=== PATIENT | female | born 1985 | race Hispanic/Latino ===

== ENCOUNTER 2017-05-26 14:53 | Emergency (ER) | payer MEDICAID, OTHER ==
[2017-05-26 15:21] VITALS: BP 120/79; PULSE 78; RESP 16; TEMP 98.5; O2SAT 100
[2017-05-26] MEDS ORDERED: Albuterol-Ipratrop 3 mg / 0.5 (3 ml) UD ONE (15:51)
--- NOTE | 2017-05-26 16:24 | ED PDOC ---
HPI: Abdomen Time Seen by Provider: 05/26/17 15:35 Chief Complaint (Nursing): GI Problem Chief Complaint (Provider): GI Problem History Per: Patient History/Exam Limitations: no limitations Onset/Duration Of Symptoms: Days (x 1) Current Symptoms Are (Timing): Still Present Additional Complaint(s): 31 year old female with a history of hemorrhoids presents to the ED complaining of anal pain since yesterday. States she has had hemorrhoids for over 10 years, but yesterday she experienced more pain than usual. Otherwise: (-) vomiting, (- ) diarrhea, (-) fever, (-) melena, (-) hematochezia, (-) rectal bleeding, (-) abdominal pain. PMD: [facility] Past Medical History Reviewed: Historical Data, Nursing Documentation, Vital Signs Vital Signs: Last Vital Signs Temp 98.5 F 05/26/17 15:20 Pulse 78 05/26/17 15:20 Resp 16 05/26/17 15:20 BP 120/79 05/26/17 15:20 Pulse Ox 100 05/26/17 16:37 - Medical History PMH: Hyperthyroidism Other PMH: hemmorhoids - Surgical History Surgical History: No Surg Hx - Family History Family History: States: Unknown Family Hx - Home Medications Home Medications: Ambulatory Orders Medication Instructions Recorded Metoclopramide Hydrochloride 10 mg PO QID PRN #30 tab 02/20/14 [Reglan] Docusate [Colace] 100 mg PO BID #60 cap 05/26/17 Hard Fat/Phenylephrine [place] 1 sup RC BID #28 sup 05/26/17 [Anusol Suppository] Hydrocortisone 2.5% (Rectal) 30 applic NC BID #1 tube 05/26/17 [Anusol-HC] - Allergies Allergies/Adverse Reactions: Allergies Allergy/AdvReac Type Severity Reaction Status Date / Time No Known Allergies Allergy Verified 05/26/17 15:17 Review of Systems ROS Statement: Except As Marked, All Systems Reviewed And Found Negative Constitutional: Negative for: Fever Gastrointestinal: Positive for: Rectal Pain. Negative for: Vomiting, Abdominal Pain, Diarrhea Physical Exam - Reviewed Nursing Documentation Reviewed: Yes Vital Signs Reviewed: Yes - Physical Exam Comments: GENERAL APPEARANCE: Patient is awake, alert, oriented x 3, in no acute distress SKIN: Warm, dry; (-) cyanosis. EYES: (-) conjunctival pallor, (-) scleral icterus. ENMT: Mucous membranes [ ] moist. NECK: (-) tenderness, (-) stiffness, (-) lymphadenopathy. CHEST AND RESPIRATORY: (-) rales, (-) rhonchi, (-) wheezes; breath sounds equal bilaterally. HEART AND CARDIOVASCULAR: (-) irregularity; (-) murmur, (-) gallop. ABDOMEN AND GI: (-) distention. Bowel sounds active; (-) tenderness, (-) guarding, (-) rebound, (-) palpable masses, (-) CVA tenderness. RECTAL: 2 non-thrombosed external hemorrhoids; 1 at 3 o'clock and the other at 9 o'clock. Slightly tender to touch. EXTREMITIES: (-) deformity, (-) edema, (+) distal pulses. NEURO AND PSYCH: Mental status as above; (-) focal findings. - ECG O2 Sat by Pulse Oximetry: 100 (RA) Pulse Ox Interpretation: Normal Medical Decision Making Medical Decision Making: Time: 16:14 Diagnsosis of hemmorhoids discussed with patient. She was advised to take sitz baths every day and given prescriptions for Colace, Anusol HC cream and a suppository. Patient is advised to follow up with general surgery for further proceedings. Advised to follow up with primary care physician in 1-2 days without fail. Advised to take medication as prescribed. Return to the emergency room at any time for any new or worsening symptoms. Patient states he/she fully agrees with and understands discharge instructions. States that he/she agrees with the plan and disposition. Verbalized and repeated discharge instructions and plan. I have given the patient opportunity to ask any additional questions. ---- Scribe Attestation: Documented by Rochelle Lopez, acting as a scribe for Destini Alvarez PA-C Provider Scribe Attestation: All medical record entries made by the Scribe were at my direction and personally dictated by me. I have reviewed the chart and agree that the record accurately reflects my personal performance of the history, physical exam, medical decision making, and the department course for this patient. I have also personally directed, reviewed, and agree with the discharge instructions and disposition. Disposition - Clinical Impression Clinical Impression: Hemorrhoid - Patient ED Disposition Is Patient to be Admitted: No Counseled Patient/Family Regarding: Diagnosis, Need For Followup, Rx Given - Disposition Referrals: Randy Casper MD [Staff Provider] - Disposition: Routine/Home Disposition Time: 17:00 Condition: STABLE Additional Instructions: Thank you for letting us take care of you today. You were treated for hemorrhoid. The emergency medical care you received today was directed at your acute symptoms. If you were prescribed any medication, please fill it and take as directed. It may take several days for your symptoms to resolve. Return to the Emergency Department if your symptoms worsen, do not improve, or if you have any other problems. Please contact your doctor in 2 days for re-evaluation and follow up / or call one of the physicians/clinics you have been referred to that are listed on the Patient Visit Information form that is included in your discharge packet. Bring any paperwork you were given at discharge with you along with any medications you are taking to your follow up visit. Our treatment cannot replace ongoing medical care by a primary care provider (PCP) outside of the emergency department. Thank you for allowing the [facility] team to be part of your care today. Prescriptions: Docusate [Colace] 100 mg PO BID #60 cap Hard Fat/Phenylephrine [place] [Anusol Suppository] 1 sup RC BID #28 sup Hydrocortisone 2.5% (Rectal) [Anusol-HC] 30 applic NC BID #1 tube Instructions: Hemorrhoids (DC) Forms: [employer] ([place]), [facility] ED School/Work Excuse
== END 2017-05-26 17:01 | disposition home or self-care (01) ==
LOC: H.ER 14:53
DX: K64.9 Unspecified hemorrhoids (principal); E05.90 Thyrotoxicosis, unspecified without thyrotoxic crisis or storm

== ENCOUNTER 2018-06-03 08:09 | Emergency (ER) | payer OTHER ==
[2018-06-03 08:18] VITALS: RESP 16; BMI 25.3
[2018-06-03 09:18] LABS: BASO % 0.3 % (0.0-2.0); EOS % 0.6 % (0.0-4.0); HEMOGLOBIN 11.3 g/dL (12.0-16.0); LYMPH # 1.6 K/uL (1.0-4.3); LYMPH % 21.4 % (20.0-40.0); MEAN CELL VOLUME 88.9 fl (81.0-99.0); MEAN CORPUSCULAR HEMOGLOBIN 30.8 pg (27.0-31.0); MEAN CORPUSCULAR HGB CONC 34.7 g/dL (33.0-37.0); MEAN PLATELET VOLUME 8.9 fl (7.2-11.7); MONO # 0.5 K/uL (0.0-0.8); MONO % 6.3 % (0.0-10.0); NEUT # 5.3 K/uL (1.8-7.0); NEUT % 71.4 % (50.0-75.0); NRBC % 0.1 % (0.0-0.0); RBC 3.66 Mil/uL (3.80-5.20); RED CELL DISTRIBUTION WIDTH 14.1 % (11.5-14.5); WHITE BLOOD COUNT 7.4 K/uL (4.8-10.8)
--- NOTE | 2018-06-03 09:19 | ED PDOC ---
HPI: Female Pain Time Seen by Provider: 06/03/18 08:24 Chief Complaint (Nursing): Abdominal Pain Chief Complaint (Provider): Vaginal Bleeding, Abdominal Cramping History Per: Patient History/Exam Limitations: no limitations Onset/Duration Of Symptoms: Days (x9) Current Symptoms Are (Timing): Still Present Additional Complaint(s): 32 year old female presents to the ED for evaluation of continuous vaginal bleeding for the past nine days s/p getting her first period s/p a termination of she had on 03/28/18. Patient is also complaining of associated mild abdominal cramping. Denies other complaints. PMD: none provided Past Medical History Reviewed: Historical Data, Nursing Documentation, Vital Signs Vital Signs: Last Vital Signs Temp 97 F L 06/03/18 08:17 Pulse 80 06/03/18 08:17 Resp 16 06/03/18 08:17 BP 117/75 06/03/18 08:17 Pulse Ox 99 06/03/18 08:17 - Medical History PMH: Hyperthyroidism - Surgical History Other surgeries: termination of - Family History Family History: States: Unknown Family Hx - Social History Current smoker - smoking cessation education provided: No Alcohol: None Drugs: Denies - Immunization History Hx Tetanus Toxoid Vaccination: No Hx Influenza Vaccination: Yes Hx Pneumococcal Vaccination: No - Home Medications Home Medications: Ambulatory Orders Medication Instructions Recorded Metoclopramide Hydrochloride 10 mg PO QID PRN #30 tab 02/20/14 [Reglan] Docusate [Colace] 100 mg PO BID #60 cap 05/26/17 Hard Fat/Phenylephrine [place] 1 sup RC BID #28 sup 05/26/17 [Anusol Suppository] Hydrocortisone 2.5% (Rectal) 30 applic MT BID #1 tube 05/26/17 [Anusol-HC] Naproxen [Naprosyn] 500 mg PO Q12H #20 tab 06/03/18 - Allergies Allergies/Adverse Reactions: Allergies Allergy/AdvReac Type Severity Reaction Status Date / Time No Known Allergies Allergy Verified 05/26/17 15:17 Review of Systems ROS Statement: Except As Marked, All Systems Reviewed And Found Negative Gastrointestinal: Positive for: Abdominal Pain (mild cramping) Genitourinary Female: Positive for: Vaginal Bleeding (continuous) Physical Exam - Reviewed Nursing Documentation Reviewed: Yes Vital Signs Reviewed: Yes - Physical Exam Appears: Positive for: No Acute Distress Head Exam: Positive for: ATRAUMATIC, NORMOCEPHALIC Skin: Positive for: Normal Color, Warm. Negative for: Rash Eye Exam: Positive for: Normal appearance Neck: Positive for: Normal, Painless ROM Cardiovascular/Chest: Positive for: Regular Rate, Rhythm Respiratory: Positive for: Normal Breath Sounds. Negative for: Respiratory Distress Gastrointestinal/Abdominal: Positive for: Normal Exam, Soft. Negative for: Tenderness Pelvic Exam: Positive for: No Masses, Active Bleeding (moderate bleeding), Other (closed cervix). Negative for: Tender Adnexa (or masses) Back: Positive for: Normal Inspection Extremity: Positive for: Normal ROM (all extremities) Neurological/Psych: Positive for: Awake, Alert, Oriented (x3) Comments: Clothing Busheler for pelvic exam: BARBARA Enriquez - Laboratory Results Result Diagrams: 06/03/18 09:10 - ECG O2 Sat by Pulse Oximetry: 99 (RA) Pulse Ox Interpretation: Normal Medical Decision Making Medical Decision Making: Time: 827 Initial Impression: vaginal bleeding s/p TOP Initial Plan: --Will obtain ob transvaginal US, CBC with differential, and Beta-HCG quant to rule out ectopic and retained products of conception. --U-dip / U-preg --Reevaluation U-preg negative. Scribe Attestation: Documented by Maile Galdamez, acting as a scribe for Og Jaimes MD. Provider Scribe Attestation: All medical record entries made by the Scribe were at my direction and personally dictated by me. I have reviewed the chart and agree that the record accurately reflects my personal performance of the history, physical exam, medical decision making, and the department course for this patient. I have also personally directed, reviewed, and agree with the discharge instructions and disposition. Disposition - Clinical Impression Clinical Impression: Menorrhagia, Metrorrhagia - Patient ED Disposition Is Patient to be Admitted: No Counseled Patient/Family Regarding: Studies Performed, Diagnosis, Need For Followup, Rx Given - Disposition Referrals: [facility] [Outside] Disposition: Routine/Home Disposition Time: 10:06 Condition: FAIR Prescriptions: Naproxen [Naprosyn] 500 mg PO Q12H #20 tab Instructions: Heavy Periods (DC) Forms: [employer] ([place])
[2018-06-03 10:22] VITALS: BP 102/60; PULSE 82; TEMP 98.2; O2SAT 98
--- NOTE | 2018-06-03 10:33 | US ---
Date of service: 06/03/2018 HISTORY: Rule out ectopic s/p TOP 03/28 COMPARISON: Comparison made with prior pelvic ultrasound dated 03/09/2018. TECHNIQUE: FINDINGS: UTERUS: Measures 7.9 x 4.2 x 5.5 cm. Retroverted normal in size and appearance. No fibroid or other mass lesion seen. ENDOMETRIUM: Measures 6.1 mm in diameter. No evidence of intrauterine gestation. Note that the possibility of an ectopic cannot be excluded on this study and therefore followup serial serum beta HCG and serial ultrasound recommended. CERVIX: No cervical abnormality identified. Nabothian cyst present RIGHT OVARY: Measures 2.8 x 2.4 x 1.8 cm. No solid mass. Normal flow. LEFT OVARY: Measures 2.3 x 1.2 x 1.2 cm. No solid mass. Normal flow. FREE FLUID: Trace amount of free fluid OTHER FINDINGS: None. IMPRESSION: No evidence of intrauterine gestation. Possibility of an ectopic cannot be excluded therefore follow-up serial serum beta HCG and serial pelvic ultrasound recommended. Trace amount of free fluid.
== END 2018-06-03 10:22 | disposition home or self-care (01) ==
LOC: H.ER 08:09
DX: N92.0 Excessive and frequent menstruation with regular cycle (principal); E05.90 Thyrotoxicosis, unspecified without thyrotoxic crisis or storm; N92.1 Excessive and frequent menstruation with irregular cycle
CPT/HCPCS: 76817; 81025; 84702; 85025; 96374; 99283; J1885